=== PATIENT | female | born 2005 | race Native Hawaiian/Other Pacific Islander ===

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

== ENCOUNTER 2023-03-17 14:59 | Emergency (ER) | payer OTHER ==
[2023-03-17 16:05] VITALS: BP 127/97; TEMP 98.2; O2SAT 98
[2023-03-17] MEDS ORDERED: Sodium Chloride 0.9% 1000 ML 1,000 ML IV STA (16:05)
[2023-03-17] MEDS ORDERED: Zofran 4 MG/2 ML VIAL IV ONE (16:05)
--- NOTE | 2023-03-17 16:05 | ERPHSYRPT ---
- History of Present Illness Time Seen by Provider: 03/17/23 16:05 Historian: patient, family Exam Limitations: no limitations Patient Subjective Stated Complaint: pt reports severe nausea starting 03/15/23, states she is unable to eat and she is constipated, pt states she also has some generalized abdominal pain. pt also reports recent cold/flu like symptoms and sick family members. Triage Nursing Assessment: pt is aox3, afebrile, pupils perrl, resps easy and non labored, cap refill < 3 seconds, pt abd soft, tender to lower quadrants, bowel sounds present, pt skin pink warm dy. mucous membranes appear moist. Physician History: This is a 17-year-old white female patient who over the last 2 to days, has had worsening nausea without vomiting. She actually is constipation rather than diarrhea. She is also having bilateral upper and bilateral lower abdominal pain. She reports having had flulike symptoms last week and there are several family members that have flulike symptoms. Patient's appetite is decreased. Patient has had a cholecystectomy in the past. Timing/Duration: day(s) (2) Activities at Onset: none Quality: fullness, pressure Abdominal Pain Onset Location: generalized abdomen Pain Radiation: no radiation Severity of Pain-Max: moderate Severity of Pain-Current: moderate Modifying Factors: Improves With: nothing Associated Symptoms: loss of appetite, nausea Previous symptoms: no prior history, no recent treatment Allergies/Adverse Reactions: No Known Drug Allergies Allergy (Verified 04/04/22 14:49) Home Medications: Pnv 119/Iron Fum/Folic Acid [ 19 Tablet] 1 each PO DAILY 09/25/22 [History] Hx Tetanus, Diphtheria Vaccination/Date Given: Yes Hx Influenza Vaccination/Date Given: Yes Hx Pneumococcal Vaccination/Date Given: No Immunizations Up to Date: Yes Travel Risk - International Travel Have you traveled outside of the country in past 3 weeks: No - Coronavirus Screening Are you exhibiting any of the following symptoms?: No Close contact with a COVID-19 positive Pt in past 14-21 Days: No - Vaccine Status Have you recieved a Covid-19 vaccination: No - Review of Systems Constitutional: No Symptoms Eyes: No Symptoms Ears, Nose, & Throat: No Symptoms Respiratory: No Symptoms Cardiac: No Symptoms Abdominal/Gastrointestinal: Abdominal Pain, Nausea, Constipation, Appetite Changes Genitourinary Symptoms: No Symptoms Musculoskeletal: No Symptoms Skin: No Symptoms Neurological: No Symptoms Psychological: No Symptoms Endocrine: No Symptoms Hematologic/Lymphatic: No Symptoms Immunological/Allergic: No Symptoms All Other Systems: Reviewed and Negative - Past Medical History Pertinent Past Medical History: Yes Neurological History: No Pertinent History ENT History: No Pertinent History Cardiac History: No Pertinent History Respiratory History: No Pertinent History Endocrine Medical History: No Pertinent History Musculoskeletal History: No Pertinent History GI Medical History: Gallbladder Disease History: No Pertinent History Psycho-Social History: No Pertinent History Female Reproductive Disorders: No Pertinent History - Past Surgical History Past Surgical History: Yes (January 2021 Cholecsytectomy) Neuro Surgical History: No Pertinent History Cardiac: No Pertinent History Respiratory: No Pertinent History Gastrointestinal: Cholecystectomy Genitourinary: No Pertinent History Musculoskeletal: No Pertinent History Female Surgical History: No Pertinent History - Social History Smoking Status: Former smoker How long have you smoked: 1-2 years Exposure to second hand smoke: Yes Drug Use: none Patient Lives Alone: No - Female History Hx Last Menstrual Period: 02/27/23 Hx Now: No - Nursing Vital Signs Nursing Vital Signs: Initial Vital Signs Temperature 98.2 F 03/17/23 15:43 Pulse Rate 116 H 03/17/23 15:43 Respiratory Rate 20 03/17/23 15:43 Blood Pressure 127/97 03/17/23 15:43 O2 Sat by Pulse Oximetry 98 03/17/23 15:43 Pain Scale Pain Intensity 5 - Physical Exam General Appearance: no apparent distress, alert, anxiety Eye Exam: PERRL/EOMI, eyes nml inspection Ears, Nose, Throat Exam: normal ENT inspection, moist mucous membranes Neck Exam: normal inspection, non-tender, supple, full range of motion Respiratory Exam: normal breath sounds, lungs clear, airway intact, No chest tenderness, No respiratory distress Cardiovascular Exam: tachycardia Gastrointestinal/Abdomen Exam: soft, normal bowel sounds, tenderness, guarding (Mild diffuse mild diffuse), No rebound Pelvic Exam: not done Rectal Exam: not done Back Exam: normal inspection, normal range of motion, No CVA tenderness, No vertebral tenderness Extremity Exam: normal inspection, normal range of motion, pelvis stable Neurologic Exam: alert, oriented x 3, cooperative, 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, normal mood/affect, nml cerebellar function, nml station & gait, sensation nml Skin Exam: normal color, warm, dry Lymphatic Exam: No adenopathy SpO2 Interpretation: normal SpO2: 98 O2 Delivery: Room Air - Course Nursing assessment & vital signs reviewed: Yes Ordered Tests: Active Orders 24 hr Category Date Time Status IV Insertion STAT Care 03/17/23 16:05 Active ABDOMEN AND PELVIS W/0 CONTRAS [CT] Stat Exams 03/17/23 16:06 Taken AMYLASE Stat Lab 03/17/23 16:40 Completed CBC W DIFF Stat Lab 03/17/23 16:40 Completed CMP Stat Lab 03/17/23 16:40 Completed CULTURE,URINE Stat Lab 03/17/23 16:08 Received HCG QUALITATIVE, SERUM Stat Lab 03/17/23 16:40 Completed LIPASE Stat Lab 03/17/23 16:40 Completed MONO SCREEN Stat Lab 03/17/23 16:40 Completed UA W/RFX UR CULTURE Stat Lab 03/17/23 16:08 Completed Medication Summary Generic Name Dose Route Start Last Admin Trade Name Freq PRN Reason Stop Dose Admin Ceftriaxone Sodium/Dextrose 1 g in 50 mls @ 100 mls/hr 03/17/23 17:56 18:21 Rocephin 1 Gm-D5w 50 Ml Bag IV 03/17/23 18:25 100 ml/hr STAT STA 100 mls/hr Administration Discontinued Medications Generic Name Dose Route Start Last Admin Trade Name Freq PRN Reason Stop Dose Admin Sodium Chloride 1,000 mls @ 999 mls/hr 03/17/23 16:05 03/17/23 17:12 Sodium Chloride 0.9% 1000 Ml IV 03/17/23 17:05 Infused .Q1H1M STA Infusion Sodium Chloride Confirm 03/17/23 16:09 Sodium Chloride 0.9% 1000 Ml Administered 03/17/23 16:10 Dose 1,000 mls @ ud .ROUTE .STK-MED ONE Ceftriaxone Sodium/Dextrose Confirm 03/17/23 18:18 Rocephin 1 Gm-D5w 50 Ml Bag Administered 03/17/23 18:19 Dose 1 g in 50 mls @ ud IV .STK-MED ONE Ondansetron HCl 4 mg 03/17/23 16:05 03/17/23 16:12 Ondansetron Hcl 4 Mg/2 Ml Vial IV 03/17/23 16:06 4 mg STAT ONE Administration Ondansetron HCl Confirm 03/17/23 16:09 Ondansetron Hcl 4 Mg/2 Ml Vial Administered 03/17/23 16:10 Dose 4 mg .ROUTE .K-MED ONE Lab/Rad Data: Laboratory Result Diagrams 03/17/23 16:40 03/17/23 16:40 Laboratory Results 03/17/23 03/17/23 03/17/23 Range/Units 16:40 16:40 16:40 WBC (4.0-10.5) x10^3/uL RBC (4.1-5.4) x10^6/uL Hgb (12.0-16.0) g/dL Hct (35-47) % MCV (78-100) fL MCH (26-32) pg MCHC (32-36) g/dL RDW (11.5-14.0) % Plt Count (150-450) x10^3/uL MPV (7.5-11.0) fL Gran % (36.0-66.0) % Immature Gran % (Auto) (0.00-0.4) % Nucleat RBC Rel Count (0.00-0.1) % Eos # (Auto) (0-0.5) x10^3/uL Immature Gran # (Auto) (0.00-0.03) x10^3u/L Absolute Lymphs (auto) (1.0-4.6) x10^3/uL Absolute Monos (auto) (0.0-1.3) x10^3/uL Absolute Nucleated RBC (0.00-0.01) x10^3u/L Lymphocytes % (24.0-44.0) % Monocytes % (0.0-12.0) % Eosinophils % (0.00-5.0) % Basophils % (0.0-0.4) % Absolute Granulocytes (1.4-6.9) x10^3/uL Basophils # (0-0.4) x10^3/uL Sodium 139 (137-145) mmol/L Potassium 3.7 (3.5-5.1) mmol/L Chloride 109 H (98-107) mmol/L Carbon Dioxide 21 L (22-30) mmol/L Anion Gap 13.4 (5-15) MEQ/L BUN 17 (7-17) mg/dL Creatinine 0.76 (0.52-1.04) mg/dL Estimated GFR 115.7 ML/MIN Glucose 89 (74-106) mg/dL Calcium 9.5 (8.4-10.2) mg/dL Total Bilirubin 1.00 (0.2-1.3) mg/dL AST 21 (14-36) U/L ALT 25 (0-35) U/L Alkaline Phosphatase 51 (38-126) U/L Serum Total Protein 8.0 (6.3-8.2) g/dL Albumin 4.8 (3.5-5.0) g/dL Amylase 95 (30-110) U/L Lipase 142 (23-300) U/L Serum HCG, Qual NEGATIVE (NEGATIVE) Urine Color (Yellow) Urine Appearance (Clear) Urine pH (4.6-8.0) Ur Specific [place] (1.005-1.030) Urine Protein (Negative) Urine Glucose (UA) (Negative) mg/dL Urine Ketones (Negative) Urine Blood (Negative) Urine Nitrite (Negative) Urine Bilirubin (Negative) Urine Urobilinogen (0.2) mg/dL Ur Leukocyte Esterase (Negative) U Hyaline Cast (Auto) (0-2) /LPF Urine Microscopic RBC (0-5) /HPF Urine Microscopic WBC (0-5) /HPF Ur Epithelial Cells (None Seen) /HPF Urine Bacteria (None Seen) /HPF Urine Culture Reflexed (NO) Monoscreen NEGATIVE (NEGATIVE) Influenza Type A Ag NEGATIVE (NEGATIVE) Influenza Type B Ag NEGATIVE (NEGATIVE) RSV (PCR) NEGATIVE (NEGATIVE) SARS-CoV-2 (PCR) NEGATIVE (NEGATIVE) 03/17/23 03/17/23 Range/Units 16:40 16:08 WBC 6.7 (4.0-10.5) x10^3/uL RBC 5.25 (4.1-5.4) x10^6/uL Hgb 15.0 (12.0-16.0) g/dL Hct 45.2 (35-47) % MCV 86.1 (78-100) fL MCH 28.6 (26-32) pg MCHC 33.2 (32-36) g/dL RDW 12.3 (11.5-14.0) % Plt Count 190 (150-450) x10^3/uL MPV 10.8 (7.5-11.0) fL Gran % 73.1 H (36.0-66.0) % Immature Gran % (Auto) 0.3 (0.00-0.4) % Nucleat RBC Rel Count 0.0 (0.00-0.1) % Eos # (Auto) 0.01 (0-0.5) x10^3/uL Immature Gran # (Auto) 0.02 (0.00-0.03) x10^3u/L Absolute Lymphs (auto) 1.33 (1.0-4.6) x10^3/uL Absolute Monos (auto) 0.42 (0.0-1.3) x10^3/uL Absolute Nucleated RBC 0.00 (0.00-0.01) x10^3u/L Lymphocytes % 19.9 L (24.0-44.0) % Monocytes % 6.3 (0.0-12.0) % Eosinophils % 0.1 (0.00-5.0) % Basophils % 0.3 (0.0-0.4) % Absolute Granulocytes 4.88 (1.4-6.9) x10^3/uL Basophils # 0.02 (0-0.4) x10^3/uL Sodium (137-145) mmol/L Potassium (3.5-5.1) mmol/L Chloride (98-107) mmol/L Carbon Dioxide (22-30) mmol/L Anion Gap (5-15) MEQ/L BUN (7-17) mg/dL Creatinine (0.52-1.04) mg/dL Estimated GFR ML/MIN Glucose (74-106) mg/dL Calcium (8.4-10.2) mg/dL Total Bilirubin (0.2-1.3) mg/dL AST (14-36) U/L ALT (0-35) U/L Alkaline Phosphatase (38-126) U/L Serum Total Protein (6.3-8.2) g/dL Albumin (3.5-5.0) g/dL Amylase (30-110) U/L Lipase (23-300) U/L Serum HCG, Qual (NEGATIVE) Urine Color Dark Yellow A (Yellow) Urine Appearance Cloudy A (Clear) Urine pH 5.0 (4.6-8.0) Ur Specific [place] >=1.030 A (1.005-1.030) Urine Protein Trace A (Negative) Urine Glucose (UA) Negative (Negative) mg/dL Urine Ketones 15 A (Negative) Urine Blood Negative (Negative) Urine Nitrite Negative (Negative) Urine Bilirubin Small A (Negative) Urine Urobilinogen 1.0 A (0.2) mg/dL Ur Leukocyte Esterase Small A (Negative) U Hyaline Cast (Auto) NONE SEEN (0-2) /LPF Urine Microscopic RBC 3-5 (0-5) /HPF Urine Microscopic WBC 21-50 A (0-5) /HPF Ur Epithelial Cells Many A (None Seen) /HPF Urine Bacteria Moderate A (None Seen) /HPF Urine Culture Reflexed YES (NO) Monoscreen (NEGATIVE) Influenza Type A Ag (NEGATIVE) Influenza Type B Ag (NEGATIVE) RSV (PCR) (NEGATIVE) SARS-CoV-2 (PCR) (NEGATIVE) - Progress Progress: unchanged Progress Note: 03/17/23 17:07 This patient's medical issue is 1 of moderate complexity. The level complex in the workup performed is based on review of the patient's past medical history, review the patient's medication list, review of the patient's drug allergy list, history present illness and physical findings on examination. The workup includes placement of intravenous line, viral swabs and mono test, urinalysis, test, 1 L normal saline solution, Zofran 4 mg intravenously, CT scan of the abdomen pelvis without contrast amylase and lipase levels. 03/17/23 17:57 I interpreted the laboratory data results. The patient has a significant urinary tract infection. We will treat this with Rocephin 1 g intravenously in the emergency department and send a prescription of Cipro 500 mg orally twice a day for 7 days to her pharmacy. We are awaiting the CT scan abdomen and pelvis results 03/17/23 18:23 CT scan of the abdomen pelvis without contrast was interpreted by the radiologist and I reviewed the impression. That is a normal CT scan of the abdomen pelvis without contrast study. Counseled pt/family regarding: lab results, diagnosis, need for follow-up, rad results Medical Desision Making - Independent Historian Additional History obtained from: Spouse - Diagnostic Testing Diagnostic test were ordered, analyzed, and reviewed by me: Yes Radiological Interpretation: Reviewed by me, Teleradiologist Report - Risk of complications The pt has a mod risk of morbidity or mortality based on: Need for prescription drug management - Departure Departure Disposition: Home Clinical Impression: UTI (urinary tract infection) Condition: Stable Critical Care Time: No Referrals: SIMEON JULIAN MD [Primary Care Provider] - Follow up/PCP as directed Additional Instructions: Drink plenty fluids. Take your antibiotics as prescribed. Follow-up with your primary care provider by phone on 03/20/2023, to make a follow-up appointment for further evaluation management. Prescriptions: Ondansetron ODT 4 MG [Zofran Odt 4 mg] 4 mg PO Q6H PRN PRN #10 tablet PRN Reason: Vomiting Ciprofloxacin [Cipro 500 MG] 500 mg PO BID #14 tablet
[2023-03-17] MEDS ORDERED: Sodium Chloride 0.9% 1000 ML 1,000 ML ONE (16:09)
[2023-03-17] MEDS ORDERED: Zofran 4 MG/2 ML VIAL ONE (16:09)
[2023-03-17 16:34] LABS: Appearance Cloudy (Clear); Bacteria Moderate /HPF (None Seen); Bilirubin Small (Negative); Blood Negative (Negative); Epithelial Cells Many /HPF (None Seen); Glucose, Urine Negative (Negative); Hyaline Casts NONE SEEN /LPF (0-2); Ketones 15 (Negative); Leukocyte Esterase Small (Negative); Nitrite Negative (Negative); Protein,Urine Dip Trace (Negative); Specific Gravity >=1.030 (1.005-1.030); WBC 21-50 /HPF (0-5)
[2023-03-17 16:53] LABS: Absolute Neutrophil Ct (ANC) 4.88 x10^3/uL (1.4-6.9); BASOPHIL % 0.3 % (0.0-0.4); Basophil (Absolute #) 0.02 x10^3/uL (0-0.4); Eosinophil % 0.1 % (0.00-5.0); Eosinophil (Absolute #) 0.01 x10^3/uL (0-0.5); Hematocrit 45.2 % (35-47); IMMATURE GRAN # 0.02 x10^3u/L (0.00-0.03); IMMATURE GRAN % 0.3 % (0.00-0.4); Lymphocyte (Absolute #) 1.33 x10^3/uL (1.0-4.6); Lymphocytes % 19.9 % (24.0-44.0); Mean Cell Volume 86.1 fL (78-100); Mean Corpuscular Hemoglobin 28.6 pg (26-32); Mean Corpuscular Hgb Concent. 33.2 g/dL (32-36); Mean Platelet Volume 10.8 fL (7.5-11.0); Monocyte (Absolute #) 0.42 x10^3/uL (0.0-1.3); Monocytes % 6.3 % (0.0-12.0); Neutrophil % 73.1 % (36.0-66.0); Platelet Count 190 x10^3/uL (150-450); Red Blood Count 5.25 x10^6/uL (4.1-5.4); Red Cell Distribution Width 12.3 % (11.5-14.0); White Blood Count 6.7 x10^3/uL (4.0-10.5)
[2023-03-17 17:01] LABS: ADD URINE CULTURE? YES (NO)
[2023-03-17 17:10] LABS: ALBUMIN 4.8 g/dL (3.5-5.0); ANION GAP 13.4 MEQ/L (5-15); Calcium 9.5 mg/dL (8.4-10.2); Creatinine 1 0.76 mg/dL (0.52-1.04); EST GLOMERULAR FILTRATION RATE 115.7 ML/MIN; Potassium 3.7 mmol/L (3.5-5.1)
[2023-03-17 17:18] LABS: HCG SERUM TEST NEGATIVE (NEGATIVE)
[2023-03-17 17:26] LABS: INFLUENZA A NEGATIVE (NEGATIVE); INFLUENZA B NEGATIVE (NEGATIVE); RESPIRATORY SYNCTIAL VIRUS NEGATIVE (NEGATIVE); SARS-CoV-2 Xpert Express NEGATIVE (NEGATIVE)
[2023-03-17] MEDS ORDERED: ROCEPHIN 1 Gm-D5w 50 ml Bag** 1 G/50 ML IVPB IV STA (17:56)
[2023-03-17] MEDS ORDERED: ROCEPHIN 1 Gm-D5w 50 ml Bag** 1 G/50 ML IVPB IV ONE (18:18)
[2023-03-17 18:53] VITALS: PULSE 92; RESP 18
--- NOTE | 2023-03-17 21:06 | XRAY ---
Indication: Lower abdomen pain and nausea. Multiple contiguous axial images obtained through the abdomen and pelvis without contrast. Comparison: None Lung bases clear. Heart not enlarged. Noncontrasted stomach and bowel loops appear nonobstructed with normal appendix. Previous cholecystectomy. Little to no colonic fecal debris. No free fluid/air. Remaining liver, pancreas, spleen, adrenal glands, kidneys, ureters, bladder, uterus, and aorta are unremarkable for noncontrast exam. Osseous structures intact. No ventral or inguinal hernias. Impression: Negative CT abdomen/pelvis without contrast exam.
== END 2023-03-17 18:57 | disposition home or self-care (01) ==
LOC: ED 14:59
DX: N39.0 Urinary tract infection, site not specified (principal); R11.0 Nausea; R10.84 Generalized abdominal pain; Z28.310 Unvaccinated for COVID-19
CPT/HCPCS: 0241U; 36000; 74176; 80053; 81001; 82150; 83690; 84703; 85025; 86308; 87086; 96374; 99284; 36415; J0696; J2405

== ENCOUNTER 2023-07-26 06:22 | Day surgery (SDC) | payer OTHER ==
[2023-07-26 06:35] LABS: HCG URINE TEST NEGATIVE (NEGATIVE)
[2023-07-26] MEDS: Lactated Ringers 1,000 ML IV SCH (06:54)
[2023-07-26] MEDS ORDERED: Versed 2 MG/2 ML Injection ONE (08:02)
[2023-07-26] MEDS ORDERED: DIPRIVAN 200 MG/20 ML IV ONE ×2 (08:03→08:20)
[2023-07-26] MEDS ORDERED: Xylocaine-Mpf 2% 5 Ml Vial ONE (08:10)
[2023-07-26 09:08] VITALS: RESP 16; TEMP 97.7; O2SAT 99
[2023-07-26 09:21] VITALS: BP 117/72; PULSE 70
--- NOTE | 2023-07-26 15:31 | OP ---
SURGERY DATE/TIME: 07/26/2023 0807 PREOPERATIVE DIAGNOSES: Abdominal pain. POSTOPERATIVE DIAGNOSES: 1) Mild gastritis. 2) Normal colon. PROCEDURES: 1) EGD. 2) Colonoscopy. SURGEON: Jimbo Camara M.D. ANESTHESIA: MAC by Edward Jin CRNA. QUANTITATIVE BLOOD LOSS: Minimal. SPECIMENS: Two cold forceps biopsies from the duodenum to celiac and two cold forceps biopsies from the gastric antrum. DESCRIPTION OF PROCEDURE: After informed written consent was obtained, the patient was taken to the endoscopy suite. She was placed in left lateral decubitus position and a bite block inserted. Anesthesia was titrated to desired level of consciousness. The endoscope is inserted in the posterior oropharynx and under direct visualization, the esophagus easily was traversed. Esophageal mucosa had a normal appearance free of any lesions or defects. The gastroesophageal junction appeared normal. Upon entering the stomach there is normal rugated gastric mucosa. The gastric antrum showed some minimal gastritis-type changes with no focal ulceration or bleeding. The pylorus is traversed and the third and second portions of the duodenum had a normal mucosal appearance. Two random cold forceps biopsies were taken from the duodenum and sent for celiac testing. Upon withdrawal from the pylorus, two more cold forceps biopsies were taken from the gastric antrum for Helicobacter pylori testing. The remainder of the exam showed normal healthy mucosal tissue with no lesions or defects. The scope was removed and the scopes were switched. Digital rectal exam showed normal sphincter tone and no internal lesions. The scope was inserted in the rectum and sequentially the entire colonic mucosa was traversed. The level of the cecum was reached and verified with direct visualization of the ileocecal valve. Upon withdrawal careful mucosal inspection revealed no gross abnormalities. There were no areas of inflammation, no polyps or other masses. Prior to withdrawal retroflexion was performed and showed no internal lesions. The scope was removed and the patient was transferred to the recovery room in excellent condition.
== END 2023-07-26 09:25 | disposition home or self-care (01) ==
LOC: SDC 06:22
PROVIDERS: ATTEND Family Medicine
DX: K29.70 Gastritis, unspecified, without bleeding (principal); R10.9 Unspecified abdominal pain
CPT/HCPCS: 81025; J2250; J2704